=== PATIENT | female | born 1950 | race Asian ===

== ENCOUNTER 2022-09-20 19:35 | Inpatient (IN) | payer OTHER ==
[~2022-09-20] VITALS: Ht 157.5 cm; Wt 49.9 kg
[2022-09-20 19:51] VITALS: BP 135/71; PULSE 71; RESP 20; TEMP 98; O2SAT 89
--- NOTE | 2022-09-20 20:02 | NUR ---
PT. RHETT FERRIS. FAMILY BEDSIDE
--- NOTE | 2022-09-20 20:15 | NUR ---
Patient being evaluated by HILARY at bedside.
[2022-09-20 20:22] LABS: BASOPHILS % (AUTO) 0.1 % (0.0-2.0); HEMATOCRIT 43.4 % (36-48); HEMOGLOBIN 14.6 g/dL (12.0-16.0); LYMPHOCYTES # (AUTO) 1.3 K/uL (2.5-16.5); LYMPHOCYTES % (AUTO) 28.9 % (20.5-51.1); MEAN CORPUSCULAR HEMOGLOBIN 30 pg (27-31); MEAN CORPUSCULAR HGB CONC 34 g/dL (33-37); MEAN CORPUSCULAR VOLUME 88.5 fL (80-94); MONOCYTES # (AUTO) 0.3 K/uL (0.8-1.0); MONOCYTES % (AUTO) 5.6 % (1.7-9.3); NEUTROPHILS % (AUTO) 64.4 % (42.2-75.2); PLATELET COUNT (AUTO) 151 K/uL (140-450); RED CELL DISTRIBUTION WIDTH 13.9 % (11.6-13.7); WHITE BLOOD COUNT (AUTO) 4.7 K/uL (4.8-10.8)
--- NOTE | 2022-09-20 20:23 | NUR ---
ASSUMED CARE OF THE PT. PT SITTING UP IN BED. PT CURRENTLY TALKING TO THE PT'S FAMILY. NO DISTRESS NOTED.
--- NOTE | 2022-09-20 20:26 | NUR ---
PER EMT, ASKED HER TO PUT THE EKG ON HOLD FOR NOW.
--- NOTE | 2022-09-20 20:34 | NUR ---
EKG IN PROGRESS BEING PERFORMED BY EMT.
[2022-09-20 20:38] LABS: ALBUMIN 3.8 g/dL (3.4-5.0); ANION GAP 13.1 (8-16); ASPARTATE AMINOTRANSFERASE 25 U/L (15-37); CARBON DIOXIDE 27.6 mmol/L (21-32); CHLORIDE 103 mmol/L (98-107); CREATININE 0.8 mg/dL (0.6-1.3); GLUCOSE 247 mg/dL (74-106); POTASSIUM 3.7 mmol/L (3.5-5.1); SODIUM SERUM 140 mmol/L (136-145); TOTAL BILIRUBIN 0.4 mg/dL (0.0-1.0); UREA NITROGEN, BLOOD 25 mg/dL (7-18)
--- NOTE | 2022-09-20 21:02 | NUR ---
Pt OOB TO THE RESTROOM ESCORTED BY THE PT'S SON TO OBTAIN UA SAMPLE.
--- NOTE | 2022-09-20 21:20 | NUR ---
WALKED MARY TO LAB.
[2022-09-20 21:22] LABS: APPEARANCE,URINE CLEAR (CLEAR); BILIRUBIN,URINE NEGATIVE (NEGATIVE); BLOOD, URINE NEGATIVE (NEGATIVE); COLOR,URINE YELLOW (YELLOW); LEUKOCYTE ESTERASE ,URINE NEGATIVE (NEGATIVE); NITRITE, URINE NEGATIVE (NEGATIVE); UGLUCOSE 3+ (NEGATIVE)
--- NOTE | 2022-09-20 21:25 | NUR ---
X-Ray at bedside.
--- NOTE | 2022-09-20 21:37 | NUR ---
Ultrasound at bedside.
[2022-09-20] MEDS ORDERED: NACL 0.9% 1,000 ML IV ONE (22:35)
[2022-09-21] MEDS ORDERED: ACYC400T14 PO (00:26)
[2022-09-21] MEDS ORDERED: EMPA25TA PO (00:26)
[2022-09-21] MEDS ORDERED: INSU100V6 SQ (00:26)
[2022-09-21] MEDS ORDERED: [UNRECOGNIZED DRUG - CODE] PO (00:27)
[2022-09-21] MEDS ORDERED: TRI48 PO (00:27)
[2022-09-21] MEDS ORDERED: GABA100C PO (00:27)
[2022-09-21] MEDS ORDERED: ROSU10TA1 PO (00:27)
[2022-09-21] MEDS ORDERED: DOCU-299 PO (00:27)
--- NOTE | 2022-09-21 00:45 | NUR ---
PT'S SON MADE AWARE THAT HIS MOTHER WOULD BE ADMITTED INTO THE HOSPITAL. PT MADE AWARE. PT RESTING CALMLY WITHOUT DISTRESS.
--- NOTE | 2022-09-21 01:06 | NUR ---
PT ESCORTED TO THE RESTROOM BY EMT.
[2022-09-21] MEDS ORDERED: NACL 0.9% 1,000 ML IV ONE (02:15)
--- NOTE | 2022-09-21 03:06 | NUR ---
TELEPHONE REPORT PROVIDED TO KYLER YOON. PT AWAKE. A/O X 4, RA. PT TO GO TO ROOM 124-B. PT ESCORTED BY CRISTOBAL TO THE FLOOR. PT LEFT BY CRISTOBAL IN STABLE CONDTION. NO DISTRESS NOTED.
[2022-09-21 04:00] VITALS: BP 142/62; PULSE 84; RESP 18; TEMP 98; O2SAT 95
--- NOTE | 2022-09-21 07:27 | NUR ---
Patient's Plan of Care was discussed and reviewed with TRUST MANAGER ASSISTANT: MUKESH CHÁVEZ
--- NOTE | 2022-09-21 07:40 | NUR ---
RECEIVED ENDORSEMENT FROM FLOATMAN NURSE FOR CONTINUITY OF CARE. PT IS STABLE, CALL LIGHT WITHIN REACH.
[2022-09-21 08:00] VITALS: BP 138/70; PULSE 81; PULSE 99; RESP 18; TEMP 97.8; O2SAT 95; O2SAT 96
[2022-09-21] MEDS ORDERED: MAG SULF 2000 MG/WATER PREMIX 50 ML IV PRN (08:00)
[2022-09-21 16:00] VITALS: BP 138/70; PULSE 81; RESP 18; TEMP 97.8; O2SAT 95
[2022-09-21] MEDS ORDERED: MORPHINE SULFATE 2 MG/ML SYR IVP PRN (18:05)
[2022-09-21] MEDS ORDERED: LORazepam 2 MG/ML VIAL IVP PRN (18:05)
[2022-09-21] MEDS ORDERED: ONDANSETRON 4 MG/2 ML VIAL IVP PRN (18:05)
[2022-09-21] MEDS ORDERED: DOCUSATE SODIUM 100 MG GELCAP PO PRN (18:05)
[2022-09-21] MEDS ORDERED: ACETAMINOPHEN 325 MG TAB PO PRN (18:05)
[2022-09-21] MEDS ORDERED: ZOLPIDEM 10 MG TAB PO PRN (18:05)
[2022-09-21] MEDS ORDERED: POTASSIUM CHLORIDE 10 MEQ TABER PO PRN (18:05)
[2022-09-21] MEDS: NACL 0.9% 1,000 ML IV SCH (18:31)
--- NOTE | 2022-09-21 19:16 | NUR ---
RECEIVED REPORT FROM DAY SHIFT NURSE FOR CONTINUITY OF CARE. PATIENT IS AWAKE, A&O X3, AROUSABLE TO NAME. AMBULATORY BUT PATIENT STATES SEVERE WEAKNESS IN LEFT SIDE EXTREMITIES AND REQUIRES ASSISTANCE WHEN AMBULATING. CURRENTLY ON ROOM AIR WITH NO SIGS OF ACUTE DISTRESS NOTED. OVERALL SKIN IS INTACT. IV SITE LOCATED AT RIGHT FOREARM 22 GAUGE, FLUSHED AND INFUSING FLUIDS WELL. CALL LIGHT WITHIN REACH, ENCOURAGED TO USE WHEN ASSISTANCE TO THE RESTROOM IS NEEDED.
[2022-09-21 20:00] VITALS: BP 122/76; PULSE 98; RESP 18; TEMP 97.1; O2SAT 97
[2022-09-21] MEDS: BLOOD GLUCOSE MONITORING 1 DEV DEV FS SCH (20:56)
--- NOTE | 2022-09-21 21:00 | NUR ---
Patient's Plan of Care was discussed and reviewed with METAL GRINDER: KYLER MAYORGA
--- NOTE | 2022-09-21 21:00 | NUR ---
PATIENT BLOOD SUGAR LEVEL OF 133, NO COVERAGE NEEDED. ALL OTHER DUE MEDICATIONS ADMINISTERED WITH NO COMPLICATIONS.
--- NOTE | 2022-09-21 23:45 | NUR ---
ASSISTED PATIENT TO RESTROOM. GAIT REMAINS VERY UNSTEADY. ASKED THE PATIENT IF WE COULD PUT HER IN A DIAPER BUT PATIENT REFUSED. ENCOURAGED PATIENT TO CONTINUE USING CALL LIGHT FOR ASSISTANCE.
[2022-09-22 04:00] VITALS: BP 114/76; PULSE 94; RESP 18; TEMP 98.1; O2SAT 96
[2022-09-22] MEDS: NACL 0.9% 1,000 ML IV SCH ×3 (04:25→18:06)
[2022-09-22 05:16] LABS: BASOPHILS % (AUTO) 0.1 % (0.0-2.0); EOSINOPHILS % (AUTO) 0.6 % (0.0-4.0); HEMATOCRIT 40.5 % (36-48); HEMOGLOBIN 13.6 g/dL (12.0-16.0); LYMPHOCYTES # (AUTO) 1.1 K/uL (2.5-16.5); LYMPHOCYTES % (AUTO) 24.9 % (20.5-51.1); MEAN CORPUSCULAR HEMOGLOBIN 30 pg (27-31); MEAN CORPUSCULAR HGB CONC 34 g/dL (33-37); MEAN CORPUSCULAR VOLUME 88.2 fL (80-94); MONOCYTES # (AUTO) 0.3 K/uL (0.8-1.0); MONOCYTES % (AUTO) 6.3 % (1.7-9.3); NEUTROPHILS # (AUTO) 3.1 K/uL (1.8-7.7); NEUTROPHILS % (AUTO) 68.1 % (42.2-75.2); PLATELET COUNT (AUTO) 121 K/uL (140-450); RED BLOOD CELL COUNT(AUTO) 4.59 MIL/uL (4.20-5.40); RED CELL DISTRIBUTION WIDTH 13.9 % (11.6-13.7); WHITE BLOOD COUNT (AUTO) 4.6 K/uL (4.8-10.8)
[2022-09-22 05:32] LABS: CARBON DIOXIDE 22.5 mmol/L (21-32); CHLORIDE 103 mmol/L (98-107); CREATININE 0.6 mg/dL (0.6-1.3); GLUCOSE 138 mg/dL (74-106); POTASSIUM 3.5 mmol/L (3.5-5.1); SODIUM SERUM 139 mmol/L (136-145); UREA NITROGEN, BLOOD 14 mg/dL (7-18)
--- NOTE | 2022-09-22 06:11 | NUR ---
SKIN AROUND IV SITE REDDENED AND CAUSING THE PATIENT PAIN. IV WAS REMOVED AND A NEW ONE WAS STARTED AT THE LEFT FOREARM 22 GAUGE, FLUSHED AND PATENT.
[2022-09-22] MEDS: BLOOD GLUCOSE MONITORING 1 DEV DEV FS SCH ×4 (06:31→21:07)
--- NOTE | 2022-09-22 07:30 | NUR ---
BEDSIDE REPORT RECEIVED FROM KYLER FOR CONTINUITY OF CARE. ALERT AND ORIENTED X 4. UKRAINIAN SPEAKING. IVF INFUSING WELL. NO C/O PAIN OR DISCOMFORT. CALL LIGHT KEPT WITHIN REACH. WILL CONTINUE TO MONITOR.
--- NOTE | 2022-09-22 07:49 | NUR ---
ENDORSED TO DAY SHIFT NURSE FOR CONTINUITY OF CARE. PT IS STABLE AT THIS TIME.
[2022-09-22 08:00] VITALS: BP 145/80; PULSE 102; PULSE 94; RESP 18; RESP 19; TEMP 97.3; O2SAT 96; O2SAT 97
[2022-09-22] MEDS: GABAPENTIN 100 MG CAP PO SCH ×3 (08:27→17:24)
[2022-09-22] MEDS: DOCUSATE SODIUM 100 MG GELCAP PO SCH (08:27)
[2022-09-22] MEDS: ATORVASTATIN 20 MG TAB PO SCH (08:27)
--- NOTE | 2022-09-22 08:27 | NUR ---
SCHEDULED PO MEDICATIONS AND HEPARIN SQ WAS GIVEN. TOLERATED WELL. SENIOR DATA MINING ANALYST ID #: [id number].
[2022-09-22] MEDS ORDERED: ATORVASTATIN 20 MG TAB PO SCH (09:00)
--- NOTE | 2022-09-22 09:29 | NUR ---
PATIENT HAS BEEN SCREENED AND CATEGORIZED MODERATE NUTRITION RISK. PATIENT WILL BE SEEN WITHIN 3-5 DAYS OF ADMISSION. 09/21/22-09/26/[address]
--- NOTE | 2022-09-22 12:05 | NUR ---
BS CHECKED 180. INSULIN WAS GIVEN PER SLIDING SCALE. GABAPENTIN PO WAS GIVEN. TOLERATED WELL.
[2022-09-22] MEDS: INSULIN LISPRO SLIDING SCALE 100 UNITS/ML VIAL SUBQ PRN ×2 (12:09→21:11)
--- NOTE | 2022-09-22 17:25 | NUR ---
BS CHECKED 139. NO COVERAGE NEEDED.
--- NOTE | 2022-09-22 17:32 | NUR ---
GABAPENTIN PO WAS GIVEN. TOLERATED WELL.
--- NOTE | 2022-09-22 17:38 | NUR ---
XRAY RESULT FOR LT HIP AND XRAY TO LT KNEE, REPORTED TO DR. FRANKS AWAITING FOR RESULT.
--- NOTE | 2022-09-22 19:15 | NUR ---
BEDSIDE REPORT GIVEN TO RADIATION CONTROL TECHNICIAN FOR CONTINUITY OF CARE. REMAINS STABLE.
[2022-09-22 20:00] VITALS: BP 133/77; PULSE 97; RESP 18; TEMP 97.2; O2SAT 95
--- NOTE | 2022-09-22 20:00 | NUR ---
RECEIVED BEDSIDE REPORT FROM NURSE KIA. PATIENT WELL RESTED IN BED ALERT VERBALLY RESPONSIVE. NO SOB ON ROOM AIR. IVF NS INFUSING TO LEFT AC. DENIES PAIN. CALL LIGHT IN REACH. SAFETY PRECAUTIONS ARE IN PLACE.
--- NOTE | 2022-09-22 21:12 | NUR ---
DUE MEDICATIONS GIVEN ORDERED.
--- NOTE | 2022-09-22 23:45 | NUR ---
EXHIBITION ORGANISER WAS USED FOR PATIENT TO EXPLAIN THE USE OF PUREWICK. PATIENT WITH BILATERAL LOWER EXTREMITY WEAKNESS. FOR PATIENT SAFETY IT WAS RECOMMENDED THE USE OF PUREWICK. EXPLAINED TO PATIENT USING EXHIBITION ORGANISER WITH UNDERSTANDING AND IS WILLING TO USE THE PUREWICK.
[2022-09-23 04:00] VITALS: BP 125/72; PULSE 92; RESP 17; TEMP 97.4; O2SAT 96
[2022-09-23] MEDS: NACL 0.9% 1,000 ML IV SCH (04:43)
[2022-09-23 05:21] LABS: BASOPHILS % (AUTO) 0.2 % (0.0-2.0); EOSINOPHILS % (AUTO) 0.8 % (0.0-4.0); HEMATOCRIT 39.6 % (36-48); HEMOGLOBIN 13.3 g/dL (12.0-16.0); LYMPHOCYTES # (AUTO) 1.6 K/uL (2.5-16.5); LYMPHOCYTES % (AUTO) 33.8 % (20.5-51.1); MEAN CORPUSCULAR HEMOGLOBIN 30 pg (27-31); MEAN CORPUSCULAR HGB CONC 34 g/dL (33-37); MEAN CORPUSCULAR VOLUME 87.8 fL (80-94); MONOCYTES # (AUTO) 0.4 K/uL (0.8-1.0); MONOCYTES % (AUTO) 7.6 % (1.7-9.3); NEUTROPHILS # (AUTO) 2.7 K/uL (1.8-7.7); NEUTROPHILS % (AUTO) 57.6 % (42.2-75.2); PLATELET COUNT (AUTO) 128 K/uL (140-450); RED BLOOD CELL COUNT(AUTO) 4.51 MIL/uL (4.20-5.40); RED CELL DISTRIBUTION WIDTH 13.8 % (11.6-13.7); WHITE BLOOD COUNT (AUTO) 4.7 K/uL (4.8-10.8)
[2022-09-23 06:11] LABS: ANION GAP 15.9 (8-16); CARBON DIOXIDE 22.4 mmol/L (21-32); CHLORIDE 107 mmol/L (98-107); CREATININE 0.6 mg/dL (0.6-1.3); GLUCOSE 158 mg/dL (74-106); POTASSIUM 3.3 mmol/L (3.5-5.1); SODIUM SERUM 142 mmol/L (136-145); UREA NITROGEN, BLOOD 11 mg/dL (7-18)
[2022-09-23] MEDS: BLOOD GLUCOSE MONITORING 1 DEV DEV FS SCH ×4 (06:33→20:55)
--- NOTE | 2022-09-23 06:40 | NUR ---
CHECKED BLOOD SUGAR WAS 150. NO INSULIN COVERAGE NEEDED.
--- NOTE | 2022-09-23 07:10 | NUR ---
BEDSIDE REPORT RECEIVED FROM CHEO FOR CONTINUITY OF CARE. ALERT AND ORIENTED X 4. ARABIC SPEAKING. IVF INFUSING WELL. NOT IN ANY DISTRESS NOTED. CALL LIGHT KEPT WITHIN REACH. WILL CONTINUE TO MONITOR.
--- NOTE | 2022-09-23 07:16 | NUR ---
ENDORSED PATIENT TO AM NURSE FOR CONTINUITY OF CARE. PATIENT STABLE.
[2022-09-23 08:00] VITALS: BP 140/75; PULSE 95; RESP 19; TEMP 98.8; O2SAT 98
[2022-09-23] MEDS: DOCUSATE SODIUM 100 MG GELCAP PO SCH (08:52)
--- NOTE | 2022-09-23 08:52 | NUR ---
SCHEDULED PO MEDICATIONS AND HEPARIN SQ WAS GIVEN. TOLERATED WELL.
[2022-09-23] MEDS: GABAPENTIN 100 MG CAP PO SCH ×3 (08:53→17:14)
[2022-09-23] MEDS: ATORVASTATIN 20 MG TAB PO SCH (08:53)
--- NOTE | 2022-09-23 08:53 | NUR ---
POTASSIUM 3.3. PRN K DUR WAS GIVEN. TOLERATED WELL.
--- NOTE | 2022-09-23 11:32 | NUR ---
RECEIVED ORDER TO PATIENT TO GO TO SNF FOR PT. WENT TO BEDSIDE TO TALK TO PATIENT ABOUT WHAT AREA SHE WOULD LIKE TO STAY.USED YARD LABOR SUPERVISOR CARON #[id number] WHO INFORMED ME THAT SHE WOULD LIKE TO STAY IN [place]. PATIENT ALSO CALLED SON TONY WHO SPOKE AFGHAN AND HE INFORMED ME THAT HE WANTS TO KEEP MOM IN THE AREA AND TRY TO FIND A PLACE WITH A [employer] PROGRAM. FAXED ALL INFORMATION OVER TO [facility]. HE ALSO REQUESTED TO ADD SISTER REVA TO EMERGENCY CONTACT LIST.WILL FOLLOW UP WITH UPDATES. Addendum: 09/23/22 at 1533 by Kezia Solano RN DC [age] YRS OLD FEMALE PATIENT WAS ADMITTED FROM HOME WITH A DX OF DIZZINESS. PATIENT HAS A HX OF DM, HLD, AND BRAIN CANCER. CXR NORMAL. VENOUS DOPPLER NO DVT. LEFT HIP AND LEFT KNEE X-RAY NO FRACTURE OR DISLOCATION. ADMINISTERED IVF AND CONTINUED HOME MEDS. PER PT EVALUATION AND RECOMMENDATION TO GO TO SNF. FAMILY PREFERRED A SNF WHO HAS A [employer]UG[employer] PROGRAM. FAXED TO [facility]. CM TO FOLLOW Addendum: 09/24/22 at 0910 by CARINA WHALEN CM RECEIVED CALL FROM SHENA AT [facility] [id number] [facility] [id number]. [facility]. TRANSPORTATION AUTH# [id number] GIVEN BY FARIDEH AT [facility]. TRANSPORTATION ARRANGED WITH [employer] FOR A [address] [employer] SU[employer] SPECIALIST TIME. CALLED DAUGHTER REVA AND SON TONY TO INFORMED THEM OF THE ABOVE INFORMATION. NURSE NESHA AWARE OF THER ABOVE INFO WELL
--- NOTE | 2022-09-23 11:58 | NUR ---
PHYSICAL THERAPY CO-SIGN The Physical Therapy Progress Notes documented by Senior Wind Energy Consultant have been reviewed. Reviewed/Co-Signed by: Becky Ghosh PT Documentation Done by:YUNEIR ARORA FIRER TUNNEL KILN Addendum: 09/23/22 at 1158 by Becky Ghosh PT Amended: Links added.
[2022-09-23] MEDS: INSULIN LISPRO SLIDING SCALE 100 UNITS/ML VIAL SUBQ PRN ×2 (12:27→21:04)
--- NOTE | 2022-09-23 17:14 | NUR ---
BS CHECKED 144. NO COVERAGE NEEDED.
--- NOTE | 2022-09-23 19:30 | NUR ---
BEDSIDE REPORT GIVEN TO CONVENTIONAL UNDERWRITER FOR CONTINUITY OF CARE. REMAINS STABLE.
--- NOTE | 2022-09-23 19:41 | NUR ---
RECEIVED REPORT FROM DAY SHIFT NURSE FOR CONTINUITY OF CARE. PATIENT IS AWAKE, A&O X4, AROUSABLE TO NAME. AMBULATORY BUT PATIENT STATES SEVERE WEAKNESS IN LEFT SIDE EXTREMITIES AND REQUIRES ASSISTANCE WHEN AMBULATING. CURRENTLY ON ROOM AIR WITH NO SIGNS OF ACUTE DISTRESS NOTED. OVERALL SKIN IS INTACT. IV SITE LOCATED AT LEFT FOREARM 22 GAUGE, FLUSHED FOR PATENCY. CALL LIGHT WITHIN REACH, ENCOURAGED TO USE WHEN ASSISTANCE TO THE RESTROOM IS NEEDED. PT HAS AGREED TO USE BED WETZEL.
[2022-09-23 20:00] VITALS: BP 115/77; PULSE 87; RESP 18; TEMP 97.2; O2SAT 96
--- NOTE | 2022-09-23 21:30 | NUR ---
PATIENT BLOOD GLUCOSE LEVEL OF 178, 2 UNITS OF HUMALOG ADMINISTERED. WHEN ATTEMPTING TO ADMINISTER HEPARIN INJECTION SUBQ, PATIENT STATED SHE DID NOT WANT THE SHOT. EDUCATED THE PATIENT ON THE RISKS OF REFUSING MEDICATION BUT PATIENT STILL STATED SHE DID NOT WANT THE MEDICATION.
[2022-09-23 23:03] VITALS: PULSE 95; RESP 19; O2SAT 98
--- NOTE | 2022-09-23 23:12 | NUR ---
Patient's Plan of Care was discussed and reviewed with ANESTHESIOLOGISTS' ASSISTANT: MUKESH CHÁVEZ
--- NOTE | 2022-09-24 03:32 | NUR ---
PATIENT SLEEPING COMFORTABLY. NO SIGNS OF DISTRESS NOTED. WILL CONTINUE MONITORING THE PATIENT.
[2022-09-24 04:00] VITALS: BP 109/66; PULSE 91; RESP 18; TEMP 97.2; O2SAT 95
[2022-09-24 05:27] LABS: BASOPHILS % (AUTO) 0.2 % (0.0-2.0); HEMATOCRIT 39.5 % (36-48); HEMOGLOBIN 13.5 g/dL (12.0-16.0); LYMPHOCYTES # (AUTO) 1.6 K/uL (2.5-16.5); LYMPHOCYTES % (AUTO) 34.5 % (20.5-51.1); MEAN CORPUSCULAR HEMOGLOBIN 30 pg (27-31); MEAN CORPUSCULAR HGB CONC 34 g/dL (33-37); MEAN CORPUSCULAR VOLUME 87.3 fL (80-94); MONOCYTES # (AUTO) 0.4 K/uL (0.8-1.0); MONOCYTES % (AUTO) 7.9 % (1.7-9.3); NEUTROPHILS # (AUTO) 2.6 K/uL (1.8-7.7); NEUTROPHILS % (AUTO) 56.4 % (42.2-75.2); PLATELET COUNT (AUTO) 132 K/uL (140-450); RED BLOOD CELL COUNT(AUTO) 4.53 MIL/uL (4.20-5.40); WHITE BLOOD COUNT (AUTO) 4.6 K/uL (4.8-10.8)
[2022-09-24] MEDS: BLOOD GLUCOSE MONITORING 1 DEV DEV FS SCH ×2 (06:36→11:30)
[2022-09-24] MEDS: INSULIN LISPRO SLIDING SCALE 100 UNITS/ML VIAL SUBQ PRN ×2 (06:38→14:09)
--- NOTE | 2022-09-24 07:01 | NUR ---
PATIENT BLOOD SUGAR LEVEL OF 175. 2 UNITS OF HUMALOG INSULIN WAS ADMINISTERED. PT TOLERATED WELL. WILL ENDORSE TO DAY SHIFT NURSE FOR CONTINUITY OF CARE.
--- NOTE | 2022-09-24 07:25 | NUR ---
RECEIVED PATIENT FROM PM NURSE FOR CONTINUATION OF CARE
[2022-09-24 07:31] LABS: ANION GAP 16.8 (8-16); CARBON DIOXIDE 21.8 mmol/L (21-32); CHLORIDE 105 mmol/L (98-107); CREATININE 0.6 mg/dL (0.6-1.3); GLUCOSE 161 mg/dL (74-106); POTASSIUM 3.6 mmol/L (3.5-5.1); SODIUM SERUM 140 mmol/L (136-145); UREA NITROGEN, BLOOD 12 mg/dL (7-18)
[2022-09-24 08:00] VITALS: PULSE 86; RESP 17; O2SAT 95
[2022-09-24] MEDS: DOCUSATE SODIUM 100 MG GELCAP PO SCH (09:52)
[2022-09-24] MEDS: GABAPENTIN 100 MG CAP PO SCH ×2 (09:53→14:03)
[2022-09-24] MEDS: ATORVASTATIN 20 MG TAB PO SCH (09:53)
[2022-09-24 12:00] VITALS: BP 109/66; PULSE 86; RESP 17; TEMP 97.2; O2SAT 95
[2022-09-24 13:20] VITALS: BP 109/66; PULSE 86; RESP 17; TEMP 97.2
--- NOTE | 2022-09-24 13:56 | NUR ---
PHYSICAL THERAPY CO-SIGN The Physical Therapy Progress Notes documented by Casing In Line Setter have been reviewed. Reviewed/Co-Signed by: Becky Ghosh PT Documentation Done by:YUNIER ARORA CADDY MASTER Addendum: 09/24/22 at 1356 by Becky Ghosh PT Amended: Links added.
== END 2022-09-24 14:23 | DRG 639 ==
LOC: MED 19:35 → EDBD 19:35 → MTU 09-21 02:16
PROVIDERS: ADMIT Family Medicine; ATTEND Family Medicine
DX: E11.65 Type 2 diabetes mellitus with hyperglycemia (principal); E78.5 Hyperlipidemia, unspecified; Z85.841 Personal history of malignant neoplasm of brain; Z79.4 Long term (current) use of insulin; Z79.899 Other long term (current) drug therapy
CPT/HCPCS: 36415; 71045; 73502; 73562; 80048; 80053; 81003; 82948; 83036; 83735; 84484; 85025; 87081; 93005; 93971; 97110; 97112; 97116; 97530; 99285; J1644; J1815; Q0092

== ENCOUNTER 2022-11-29 14:22 | Emergency (ER) | payer OTHER, MEDICAID ==
[~2022-11-29] VITALS: Ht 157.5 cm; Wt 54.4 kg
[~2022-11-29 14:22] MED LIST: ACYC400T14 PO; DOCU-299 PO; EMPA25TA PO; GABA100C PO; INSU100V6 SQ; ROSU10TA1 PO; TRI48 PO; [UNRECOGNIZED DRUG - CODE] PO
[2022-11-29 14:37] VITALS: BP 119/81; PULSE 104; RESP 16; TEMP 97.4; O2SAT 98
[2022-11-29 15:13] LABS: BASOPHILS % (AUTO) 0.1 % (0.0-2.0); EOSINOPHILS % (AUTO) 0.7 % (0.0-4.0); HEMATOCRIT 39.2 % (36-48); HEMOGLOBIN 13.2 g/dL (12.0-16.0); LYMPHOCYTES # (AUTO) 1.3 K/uL (2.5-16.5); MEAN CORPUSCULAR HEMOGLOBIN 30 pg (27-31); MEAN CORPUSCULAR HGB CONC 34 g/dL (33-37); MEAN CORPUSCULAR VOLUME 88.7 fL (80-94); MONOCYTES # (AUTO) 0.4 K/uL (0.8-1.0); MONOCYTES % (AUTO) 8.9 % (1.7-9.3); NEUTROPHILS % (AUTO) 62.3 % (42.2-75.2); PLATELET COUNT (AUTO) 133 K/uL (140-450); RED BLOOD CELL COUNT(AUTO) 4.42 MIL/uL (4.20-5.40); RED CELL DISTRIBUTION WIDTH 13.3 % (11.6-13.7); WHITE BLOOD COUNT (AUTO) 4.8 K/uL (4.8-10.8)
[2022-11-29 15:29] LABS: ALANINE AMINOTRANSFERASE 50 U/L (12-78); ALBUMIN 3.3 g/dL (3.4-5.0); ALKALINE PHOSPHATASE 102 U/L (50-136); ANION GAP 14.5 (8-16); ASPARTATE AMINOTRANSFERASE 35 U/L (15-37); CALCIUM 8.8 mg/dL (8.5-10.1); CARBON DIOXIDE 23.2 mmol/L (21-32); CHLORIDE 101 mmol/L (98-107); CREATININE 0.8 mg/dL (0.6-1.3); GLUCOSE 299 mg/dL (74-106); POTASSIUM 3.7 mmol/L (3.5-5.1); SODIUM SERUM 135 mmol/L (136-145); TOTAL BILIRUBIN 0.5 mg/dL (0.0-1.0); TOTAL PROTEIN, SERUM 7.6 g/dL (6.4-8.2); UREA NITROGEN, BLOOD 20 mg/dL (7-18)
[2022-11-30 07:45] VITALS: O2SAT 98
[2022-11-30] MEDS ORDERED: ACET-10509 PO (09:50)
[2022-11-30 09:55] VITALS: BP 125/82; PULSE 82; RESP 16; TEMP 98; O2SAT 99
== END 2022-11-30 09:55 | disposition home or self-care (01) ==
LOC: MED 14:22
DX: S00.03XA Contusion of scalp, initial encounter (principal); R76.8 Other specified abnormal immunological findings in serum; Z79.899 Other long term (current) drug therapy; W18.30XA Fall on same level, unspecified, initial encounter; Y93.89 Activity, other specified; Y92.89 Other specified places as the place of occurrence of the external cause; Y99.8 Other external cause status
CPT/HCPCS: 36415; 70450; 71045; 71275; 72125; 80053; 83880; 84484; 85025; 85379; 93005; 93970; 99285; Q0092; Q9967

== ENCOUNTER 2023-11-08 14:58 | Emergency (ER) | payer OTHER, MEDICAID ==
[~2023-11-08] VITALS: Ht 154.9 cm; Wt 59.0 kg
[~2023-11-08 14:58] MED LIST changes: +ACET-2619 PO; -ACYC400T14 PO; +DAPA5TAB PO; +DOCU-2 PO; -DOCU-299 PO; -EMPA25TA PO; +FENO48TA11 PO; +INSU100S22 SUBQ; -INSU100V6 SQ; +METF-346 PO; +MIRT-120 PO; +OXYB5TAB44 PO; +POTA10TA70 PO; +SITA100T8 PO; +TIM.5OS OP; -TRI48 PO
[2023-11-08 15:00] VITALS: BP 126/70; PULSE 90; RESP 18; TEMP 98.7; O2SAT 97
[2023-11-08 16:26] LABS: BASOPHILS % (AUTO) 0.1 % (0.0-2.0); EOSINOPHILS % (AUTO) 0.5 % (0.0-4.0); HEMATOCRIT 41.7 % (36-48); HEMOGLOBIN 13.7 g/dL (12.0-16.0); LYMPHOCYTES # (AUTO) 2.3 K/uL (2.5-16.5); MEAN CORPUSCULAR HEMOGLOBIN 29 pg (27-31); MEAN CORPUSCULAR HGB CONC 33 g/dL (33-37); MEAN CORPUSCULAR VOLUME 87.9 fL (80-94); MONOCYTES # (AUTO) 0.4 K/uL (0.8-1.0); MONOCYTES % (AUTO) 6.1 % (1.7-9.3); NEUTROPHILS # (AUTO) 4.4 K/uL (1.8-7.7); NEUTROPHILS % (AUTO) 61.3 % (42.2-75.2); PLATELET COUNT (AUTO) 166 K/uL (140-450); RED BLOOD CELL COUNT(AUTO) 4.74 MIL/uL (4.20-5.40); RED CELL DISTRIBUTION WIDTH 14.2 % (11.6-13.7); WHITE BLOOD COUNT (AUTO) 7.1 K/uL (4.8-10.8)
[2023-11-08 16:46] LABS: ANION GAP 14.3 (8-16); CALCIUM 9.5 mg/dL (8.5-10.1); CARBON DIOXIDE 26.4 mmol/L (21-32); CHLORIDE 101 mmol/L (98-107); CREATININE 0.7 mg/dL (0.6-1.3); GLUCOSE 147 mg/dL (74-106); POTASSIUM 3.7 mmol/L (3.5-5.1); SODIUM SERUM 138 mmol/L (136-145); UREA NITROGEN, BLOOD 15 mg/dL (7-18)
[2023-11-08 16:58] LABS: APPEARANCE,URINE HAZY (CLEAR); BILIRUBIN,URINE NEGATIVE (NEGATIVE); BLOOD, URINE 1+ (NEGATIVE); COLOR,URINE YELLOW (YELLOW); LEUKOCYTE ESTERASE ,URINE 3+ (NEGATIVE); NITRITE, URINE POSITIVE (NEGATIVE); PROTEIN,URINE 1+ (NEGATIVE); UGLUCOSE NEGATIVE (NEGATIVE); UROBILINOGEN,URINE 0.2 EU/dL (0.2 - 1)
[2023-11-08 17:01] LABS: THYROID STIMULATING HORMONE 1.65 uIU/mL (0.34-3.74)
[2023-11-08 17:12] VITALS: BP 130/67; PULSE 84; RESP 19; TEMP 98.7
[2023-11-08 17:17] LABS: BACTERIA,URINE 3+ /HPF (None Seen); SQUAMOUS EPITHELIAL CELL,UR 4-10 (MOD) /LPF (0-3 (FEW)); WBC,URINE 20-60 /HPF (0-5)
[2023-11-08 17:27] VITALS: O2SAT 98
[2023-11-08] MEDS ORDERED: CEPH-588 PO (17:29)
[2023-11-08] MEDS ORDERED: LORazepam 2 MG/ML VIAL ONE (18:08)
[2023-11-08] MEDS: LORazepam 2 MG/ML VIAL IM ONE (18:22)
== END 2023-11-08 18:37 | disposition home or self-care (01) ==
LOC: MED 14:58
DX: N39.0 Urinary tract infection, site not specified (principal); R42 Dizziness and giddiness; R53.1 Weakness; R51.9 Headache, unspecified; I10 Essential (primary) hypertension; E11.9 Type 2 diabetes mellitus without complications; F03.90 Unspecified dementia, unspecified severity, without behavioral disturbance, psychotic disturbance, mood disturbance, and anxiety; Z85.841 Personal history of malignant neoplasm of brain; E78.5 Hyperlipidemia, unspecified; Z79.84 Long term (current) use of oral hypoglycemic drugs; Z79.1 Long term (current) use of non-steroidal anti-inflammatories (NSAID); Z79.899 Other long term (current) drug therapy; Z88.1 Allergy status to other antibiotic agents
CPT/HCPCS: 36415; 70450; 80048; 81001; 84443; 84484; 85025; 87086; 87186; 93005; 99284; J2060

== ENCOUNTER 2023-12-12 19:27 | Emergency (ER) | payer OTHER ==
[~2023-12-12] VITALS: Ht 157.5 cm; Wt 54.4 kg
[~2023-12-12 19:27] MED LIST changes: +CEPH-588 PO
[2023-12-12 19:33] VITALS: BP 136/86; PULSE 97; RESP 14; TEMP 97.3; O2SAT 95
[2023-12-12 19:45] VITALS: O2SAT 99
[2023-12-12 20:44] LABS: BASOPHILS % (AUTO) 0.1 % (0.0-2.0); EOSINOPHILS # (AUTO) 0.1 K/uL (0-0.4); EOSINOPHILS % (AUTO) 0.7 % (0.0-4.0); HEMATOCRIT 39.9 % (36-48); HEMOGLOBIN 13.3 g/dL (12.0-16.0); LYMPHOCYTES # (AUTO) 2.6 K/uL (2.5-16.5); LYMPHOCYTES % (AUTO) 35.6 % (20.5-51.1); MEAN CORPUSCULAR HEMOGLOBIN 29 pg (27-31); MEAN CORPUSCULAR HGB CONC 33 g/dL (33-37); MEAN CORPUSCULAR VOLUME 86.9 fL (80-94); MONOCYTES # (AUTO) 0.5 K/uL (0.8-1.0); MONOCYTES % (AUTO) 7.3 % (1.7-9.3); NEUTROPHILS # (AUTO) 4.1 K/uL (1.8-7.7); NEUTROPHILS % (AUTO) 56.3 % (42.2-75.2); PLATELET COUNT (AUTO) 178 K/uL (140-450); RED BLOOD CELL COUNT(AUTO) 4.59 MIL/uL (4.20-5.40); RED CELL DISTRIBUTION WIDTH 14.3 % (11.6-13.7); WHITE BLOOD COUNT (AUTO) 7.2 K/uL (4.8-10.8)
[2023-12-12 21:00] LABS: ALANINE AMINOTRANSFERASE 32 U/L (12-78); ALBUMIN 3.4 g/dL (3.4-5.0); ALKALINE PHOSPHATASE 49 U/L (50-136); ANION GAP 14.1 (8-16); ASPARTATE AMINOTRANSFERASE 19 U/L (15-37); CALCIUM 9.4 mg/dL (8.5-10.1); CARBON DIOXIDE 26.7 mmol/L (21-32); CHLORIDE 102 mmol/L (98-107); CREATININE 0.7 mg/dL (0.6-1.3); GLUCOSE 123 mg/dL (74-106); LIPASE 47 U/L (16-77); POTASSIUM 3.8 mmol/L (3.5-5.1); SODIUM SERUM 139 mmol/L (136-145); TOTAL BILIRUBIN 0.3 mg/dL (0.0-1.0); TOTAL PROTEIN, SERUM 7.6 g/dL (6.4-8.2); UREA NITROGEN, BLOOD 12 mg/dL (7-18)
[2023-12-12 21:50] LABS: BILIRUBIN,URINE NEGATIVE (NEGATIVE); BLOOD, URINE NEGATIVE (NEGATIVE); COLOR,URINE YELLOW (YELLOW); LEUKOCYTE ESTERASE ,URINE TRACE (NEGATIVE); NITRITE, URINE POSITIVE (NEGATIVE); PROTEIN,URINE NEGATIVE (NEGATIVE); UGLUCOSE NEGATIVE (NEGATIVE); UROBILINOGEN,URINE 0.2 EU/dL (0.2 - 1)
[2023-12-12 21:52] LABS: APPEARANCE,URINE SLIGHTLY CLOUDY (CLEAR)
[2023-12-12 21:58] LABS: BACTERIA,URINE 2+ /HPF (None Seen); MUCUS,URINE None Seen /LPF (None Seen); RBC,URINE 0 /HPF (0-5); SQUAMOUS EPITHELIAL CELL,UR 4-10 (MOD) /LPF (0-3 (FEW)); WBC,URINE 0-5 /HPF (0-5)
[2023-12-12] MEDS ORDERED: CEPH-588 PO (22:11)
[2023-12-12] MEDS ORDERED: ACET500T99 PO (22:12)
[2023-12-13 00:50] VITALS: BP 101/75; PULSE 84; RESP 14; TEMP 98.1; O2SAT 99
== END 2023-12-13 00:50 | disposition home or self-care (01) ==
LOC: MED 19:27
DX: N39.0 Urinary tract infection, site not specified (principal); I12.9 Hypertensive chronic kidney disease with stage 1 through stage 4 chronic kidney disease, or unspecified chronic kidney disease; E11.22 Type 2 diabetes mellitus with diabetic chronic kidney disease; N18.9 Chronic kidney disease, unspecified; E78.5 Hyperlipidemia, unspecified; Z79.84 Long term (current) use of oral hypoglycemic drugs; Z79.899 Other long term (current) drug therapy; Z88.1 Allergy status to other antibiotic agents
CPT/HCPCS: 36415; 80053; 81001; 83690; 84484; 85025; 87086; 87186; 93005; 99284

== ENCOUNTER 2024-01-19 23:49 | Inpatient (IN) | payer OTHER ==
[~2024-01-19] VITALS: Ht 162.6 cm; Wt 49.4 kg
[~2024-01-19 23:49] MED LIST changes: +ACET500T99 PO
[2024-01-19 23:51] VITALS: BP 146/89; PULSE 100; RESP 16; TEMP 97.8; O2SAT 96
[2024-01-20] VITALS (7 sets, daily range): BP systolic 97–121; BP diastolic 58–65; PULSE 72–91; RESP 18–19; TEMP 96.3–96.9; O2SAT 95–100
[2024-01-20] MEDS: ONDANSETRON 4 MG/2 ML VIAL IVP ONE (01:08)
[2024-01-20 01:10] LABS: EOSINOPHILS % (AUTO) 0.1 % (0.0-4.0); HEMATOCRIT 40.9 % (36-48); HEMOGLOBIN 13.8 g/dL (12.0-16.0); LYMPHOCYTES # (AUTO) 1.9 K/uL (2.5-16.5); LYMPHOCYTES % (AUTO) 15.8 % (20.5-51.1); MEAN CORPUSCULAR HEMOGLOBIN 29 pg (27-31); MEAN CORPUSCULAR HGB CONC 34 g/dL (33-37); MONOCYTES # (AUTO) 0.8 K/uL (0.8-1.0); MONOCYTES % (AUTO) 6.8 % (1.7-9.3); NEUTROPHILS # (AUTO) 9.2 K/uL (1.8-7.7); NEUTROPHILS % (AUTO) 77.3 % (42.2-75.2); PLATELET COUNT (AUTO) 181 K/uL (140-450); RED BLOOD CELL COUNT(AUTO) 4.71 MIL/uL (4.20-5.40); RED CELL DISTRIBUTION WIDTH 14.1 % (11.6-13.7); WHITE BLOOD COUNT (AUTO) 11.9 K/uL (4.8-10.8)
[2024-01-20 01:27] LABS: INR 1.11 (0.8-1.2); PARTIAL THROMBOPLASTIN TIME 25.7 secs (22-35.6); PROTHROMBIN TIME 11.5 secs (10.8-13.4)
[2024-01-20 01:35] LABS: ALANINE AMINOTRANSFERASE 30 U/L (12-78); ALBUMIN 3.5 g/dL (3.4-5.0); ALKALINE PHOSPHATASE 52 U/L (50-136); ASPARTATE AMINOTRANSFERASE 19 U/L (15-37); BILIRUBIN,DIRECT 0.1 mg/dL (0.0-0.3); LIPASE 24 U/L (16-77); TOTAL BILIRUBIN 0.6 mg/dL (0.0-1.0); TOTAL PROTEIN, SERUM 7.7 g/dL (6.4-8.2)
[2024-01-20 01:48] LABS: ANION GAP 14.2 (8-16); CALCIUM 9.3 mg/dL (8.5-10.1); CHLORIDE 97 mmol/L (98-107); CREATININE 0.7 mg/dL (0.6-1.3); GLUCOSE 169 mg/dL (74-106); POTASSIUM 4.2 mmol/L (3.5-5.1); SODIUM SERUM 134 mmol/L (136-145); UREA NITROGEN, BLOOD 14 mg/dL (7-18)
[2024-01-20] MEDS ORDERED: KETOROLAC 30 MG/ML VIAL IM ONE (03:00)
[2024-01-20] MEDS: KETOROLAC 30 MG/ML VIAL IVP ONE (03:48)
[2024-01-20] MEDS: ACETAMINOPHEN EXTRA STRENGTH 500 MG TAB PO ONE (03:53)
[2024-01-20] MEDS ORDERED: ACETAMINOPHEN 325 MG TAB PO PRN (04:00)
[2024-01-20 04:10] LABS: APPEARANCE,URINE CLEAR (CLEAR); BILIRUBIN,URINE NEGATIVE (NEGATIVE); BLOOD, URINE NEGATIVE (NEGATIVE); COLOR,URINE YELLOW (YELLOW); LEUKOCYTE ESTERASE ,URINE 3+ (NEGATIVE); NITRITE, URINE NEGATIVE (NEGATIVE); PROTEIN,URINE TRACE (NEGATIVE); UGLUCOSE NEGATIVE (NEGATIVE); UROBILINOGEN,URINE 0.2 EU/dL (0.2 - 1)
[2024-01-20 04:12] LABS: BACTERIA,URINE >30 (MANY) /HPF (None Seen); MUCUS,URINE 1+ /LPF (None Seen); RBC,URINE 0-5 /HPF (0-5); SQUAMOUS EPITHELIAL CELL,UR 0-3 (FEW) /LPF (0-3 (FEW)); WBC,URINE >25 (MANY) /HPF (0-5)
[2024-01-20] MEDS ORDERED: ASCO500T95 PO (04:49)
[2024-01-20] MEDS ORDERED: TIM.5OS OP (04:49)
[2024-01-20] MEDS ORDERED: BISA-279 RC (04:49)
[2024-01-20] MEDS ORDERED: TUBE5SOL28 TD (04:49)
[2024-01-20] MEDS ORDERED: DOCU-299 PO (04:49)
[2024-01-20] MEDS ORDERED: MAGN400S60 PO (04:49)
[2024-01-20] MEDS ORDERED: GLIP5TER PO (04:49)
[2024-01-20] MEDS ORDERED: ACET-2619 PO (04:49)
[2024-01-20] MEDS ORDERED: OXYB5TAB44 PO (04:49)
[2024-01-20] MEDS ORDERED: IBUP200C15 PO (04:49)
[2024-01-20] MEDS ORDERED: D50SYR IV (04:49)
[2024-01-20] MEDS ORDERED: FLEPED RC (04:49)
[2024-01-20] MEDS ORDERED: ONDA4TAB12 PO (04:49)
[2024-01-20] MEDS ORDERED: ROSU40TA PO (04:49)
[2024-01-20] MEDS ORDERED: MECL-303 PO (04:49)
[2024-01-20] MEDS ORDERED: TRI48 PO (04:49)
[2024-01-20] MEDS ORDERED: METF-1139 PO (04:49)
[2024-01-20] MEDS ORDERED: GLUC1PDS1 IM (04:49)
[2024-01-20 05:44] LABS: FLU A ANTIGEN POSITIVE (NEGATIVE); FLU B ANTIGEN NEGATIVE (NEGATIVE)
[2024-01-20] MEDS ORDERED: cefTRIAXone 1,000 MG VIAL ONE (06:00)
[2024-01-20] MEDS: ENOXAPARIN 40 MG/0.4 ML SYR SUBQ SCH (10:32)
[2024-01-21] VITALS (7 sets, daily range): BP systolic 92–109; BP diastolic 59–63; PULSE 65–78; RESP 17–20; TEMP 96.5–98; O2SAT 94–99
[2024-01-21] MEDS: cefTRIAXone 1,000 MG VIAL ONE (05:38)
[2024-01-21 06:48] LABS: BASOPHILS % (AUTO) 0.1 % (0.0-2.0); EOSINOPHILS % (AUTO) 0.4 % (0.0-4.0); HEMATOCRIT 36.4 % (36-48); LYMPHOCYTES % (AUTO) 38.2 % (20.5-51.1); MEAN CORPUSCULAR HEMOGLOBIN 29 pg (27-31); MEAN CORPUSCULAR HGB CONC 33 g/dL (33-37); MEAN CORPUSCULAR VOLUME 86.8 fL (80-94); MONOCYTES # (AUTO) 0.3 K/uL (0.8-1.0); MONOCYTES % (AUTO) 6.4 % (1.7-9.3); NEUTROPHILS # (AUTO) 2.9 K/uL (1.8-7.7); NEUTROPHILS % (AUTO) 54.9 % (42.2-75.2); PLATELET COUNT (AUTO) 155 K/uL (140-450); RED BLOOD CELL COUNT(AUTO) 4.19 MIL/uL (4.20-5.40); RED CELL DISTRIBUTION WIDTH 14.3 % (11.6-13.7); WHITE BLOOD COUNT (AUTO) 5.2 K/uL (4.8-10.8)
[2024-01-21 07:24] LABS: ALANINE AMINOTRANSFERASE 23 U/L (12-78); ALBUMIN 2.9 g/dL (3.4-5.0); ALKALINE PHOSPHATASE 45 U/L (50-136); ANION GAP 11.7 (8-16); ASPARTATE AMINOTRANSFERASE 16 U/L (15-37); CALCIUM 8.8 mg/dL (8.5-10.1); CARBON DIOXIDE 27.9 mmol/L (21-32); CHLORIDE 101 mmol/L (98-107); CREATININE 0.7 mg/dL (0.6-1.3); GLUCOSE 157 mg/dL (74-106); MAGNESIUM 1.9 mg/dL (1.8-2.4); PHOSPHORUS 3.5 mg/dL (2.5-4.9); POTASSIUM 3.6 mmol/L (3.5-5.1); SODIUM SERUM 137 mmol/L (136-145); TOTAL BILIRUBIN 0.3 mg/dL (0.0-1.0); TOTAL PROTEIN, SERUM 6.8 g/dL (6.4-8.2); UREA NITROGEN, BLOOD 17 mg/dL (7-18)
[2024-01-21] MEDS: OSELTAMIVIR PHOSPHATE 75 MG CAP PO SCH (08:25)
[2024-01-21] MEDS: ASPIRIN 81 MG TAB.CHEW PO SCH (08:25)
[2024-01-21] MEDS ORDERED: MECLIZINE 25 MG TAB PO PRN (08:50)
[2024-01-21] MEDS ORDERED: DEXTROSE 50% 50 ML SYR IVP PRN (08:55)
[2024-01-21] MEDS ORDERED: OXYBUTYNIN 5 MG TAB PO SCH (09:00)
[2024-01-21] MEDS ORDERED: bisacodyL 10 MG SUPP RC PRN (09:00)
[2024-01-21] MEDS: DOCUSATE SODIUM 100 MG GELCAP PO SCH (09:42)
[2024-01-21] MEDS: GABAPENTIN 100 MG CAP PO SCH (09:42)
[2024-01-21] MEDS: BLOOD GLUCOSE MONITORING 1 DEV DEV FS SCH (11:30)
[2024-01-21] MEDS: OXYBUTYNIN 5 MG TAB PO SCH (13:02)
[2024-01-21] MEDS: INSULIN LISPRO SLIDING SCALE 100 UNITS/ML VIAL SUBQ PRN (17:16)
[2024-01-21] MEDS: MIRTAZAPINE 15 MG TAB PO SCH (20:10)
[2024-01-22] VITALS: BP 100/60; PULSE 70; RESP 17; TEMP 97; O2SAT 98
[2024-01-22 04:00] VITALS: BP 100/60; PULSE 73; RESP 18; TEMP 96.8; O2SAT 98
[2024-01-22 07:20] LABS: BASOPHILS % (AUTO) 0.1 % (0.0-2.0); EOSINOPHILS % (AUTO) 0.7 % (0.0-4.0); HEMATOCRIT 40.6 % (36-48); HEMOGLOBIN 13.4 g/dL (12.0-16.0); LYMPHOCYTES # (AUTO) 1.7 K/uL (2.5-16.5); MEAN CORPUSCULAR HEMOGLOBIN 29 pg (27-31); MEAN CORPUSCULAR HGB CONC 33 g/dL (33-37); MEAN CORPUSCULAR VOLUME 87.8 fL (80-94); MONOCYTES # (AUTO) 0.4 K/uL (0.8-1.0); MONOCYTES % (AUTO) 7.8 % (1.7-9.3); NEUTROPHILS # (AUTO) 2.4 K/uL (1.8-7.7); NEUTROPHILS % (AUTO) 54.4 % (42.2-75.2); PLATELET COUNT (AUTO) 169 K/uL (140-450); RED BLOOD CELL COUNT(AUTO) 4.63 MIL/uL (4.20-5.40); RED CELL DISTRIBUTION WIDTH 14.3 % (11.6-13.7); WHITE BLOOD COUNT (AUTO) 4.5 K/uL (4.8-10.8)
[2024-01-22 08:00] VITALS: BP 122/71; PULSE 71; RESP 18; TEMP 96.9; O2SAT 97; O2SAT 98
[2024-01-22 08:00] LABS: ALANINE AMINOTRANSFERASE 39 U/L (12-78); ALBUMIN 3.3 g/dL (3.4-5.0); ALKALINE PHOSPHATASE 44 U/L (50-136); ANION GAP 10.8 (8-16); ASPARTATE AMINOTRANSFERASE 30 U/L (15-37); CARBON DIOXIDE 30.7 mmol/L (21-32); CHLORIDE 103 mmol/L (98-107); CREATININE 0.7 mg/dL (0.6-1.3); GLUCOSE 204 mg/dL (74-106); POTASSIUM 3.5 mmol/L (3.5-5.1); SODIUM SERUM 141 mmol/L (136-145); TOTAL BILIRUBIN 0.2 mg/dL (0.0-1.0); TOTAL PROTEIN, SERUM 7.6 g/dL (6.4-8.2); UREA NITROGEN, BLOOD 21 mg/dL (7-18)
[2024-01-22 16:00] VITALS: PULSE 74; RESP 18; TEMP 97.4; O2SAT 98
[2024-01-22 16:49] VITALS: O2SAT 96
[2024-01-22] MEDS: HYDROcodone/APAP 5/325 MG 1 TAB TAB PO PRN (18:26)
[2024-01-22 20:00] VITALS: PULSE 76; PULSE 78; RESP 17; RESP 18; TEMP 97.8; O2SAT 95; O2SAT 96
[2024-01-23] VITALS: BP 119/73; PULSE 79; RESP 16; TEMP 98.2; O2SAT 97
[2024-01-23 07:22] LABS: BASOPHILS % (AUTO) 0.3 % (0.0-2.0); EOSINOPHILS % (AUTO) 0.9 % (0.0-4.0); HEMATOCRIT 38.8 % (36-48); HEMOGLOBIN 12.8 g/dL (12.0-16.0); LYMPHOCYTES # (AUTO) 1.7 K/uL (2.5-16.5); LYMPHOCYTES % (AUTO) 42.7 % (20.5-51.1); MEAN CORPUSCULAR HEMOGLOBIN 29 pg (27-31); MEAN CORPUSCULAR HGB CONC 33 g/dL (33-37); MEAN CORPUSCULAR VOLUME 87.3 fL (80-94); MONOCYTES # (AUTO) 0.3 K/uL (0.8-1.0); MONOCYTES % (AUTO) 7.3 % (1.7-9.3); NEUTROPHILS # (AUTO) 1.9 K/uL (1.8-7.7); NEUTROPHILS % (AUTO) 48.8 % (42.2-75.2); PLATELET COUNT (AUTO) 162 K/uL (140-450); RED BLOOD CELL COUNT(AUTO) 4.45 MIL/uL (4.20-5.40); RED CELL DISTRIBUTION WIDTH 14.2 % (11.6-13.7)
[2024-01-23 08:00] VITALS: BP 126/78; PULSE 85; RESP 18; TEMP 96.9; O2SAT 96
[2024-01-23 08:00] LABS: ALANINE AMINOTRANSFERASE 57 U/L (12-78); ALBUMIN 3.2 g/dL (3.4-5.0); ALKALINE PHOSPHATASE 47 U/L (50-136); ANION GAP 11.6 (8-16); ASPARTATE AMINOTRANSFERASE 46 U/L (15-37); CALCIUM 8.7 mg/dL (8.5-10.1); CARBON DIOXIDE 27.8 mmol/L (21-32); CHLORIDE 105 mmol/L (98-107); CREATININE 0.6 mg/dL (0.6-1.3); GLUCOSE 152 mg/dL (74-106); POTASSIUM 3.4 mmol/L (3.5-5.1); SODIUM SERUM 141 mmol/L (136-145); TOTAL BILIRUBIN 0.2 mg/dL (0.0-1.0); UREA NITROGEN, BLOOD 14 mg/dL (7-18)
[2024-01-23] MEDS: MORPHINE SULFATE 2 MG/ML SYR IVP PRN (10:01)
[2024-01-23] MEDS ORDERED: TAM75 PO (11:38)
[2024-01-23 14:44] VITALS: BP 127/72; PULSE 75; RESP 18; TEMP 97.6
[2024-01-23 16:00] VITALS: BP_SYST 110; BP_SYST 121; BP_DIAS 75; BP_DIAS 78; PULSE 78; PULSE 88; RESP 18; RESP 19; TEMP 96.8; TEMP 97; O2SAT 97; O2SAT 98
[2024-01-23 17:15] VITALS: O2SAT 98
== END 2024-01-23 18:00 | DRG 565 ==
LOC: MED 23:49 → MTU 01-20 04:01
PROVIDERS: ADMIT Student in an Organized Health Care Education/Training Program; ATTEND Student in an Organized Health Care Education/Training Program
DX: M85.812 Other specified disorders of bone density and structure, left shoulder (principal); N30.00 Acute cystitis without hematuria; J10.1 Influenza due to other identified influenza virus with other respiratory manifestations; Z20.822 Contact with and (suspected) exposure to COVID-19; E11.22 Type 2 diabetes mellitus with diabetic chronic kidney disease; I12.9 Hypertensive chronic kidney disease with stage 1 through stage 4 chronic kidney disease, or unspecified chronic kidney disease; E11.65 Type 2 diabetes mellitus with hyperglycemia; E78.5 Hyperlipidemia, unspecified; N18.9 Chronic kidney disease, unspecified; Z88.1 Allergy status to other antibiotic agents; Z79.899 Other long term (current) drug therapy; Z79.4 Long term (current) use of insulin; Z79.84 Long term (current) use of oral hypoglycemic drugs; M85.811 Other specified disorders of bone density and structure, right shoulder
CPT/HCPCS: 36415; 71045; 73030; 80048; 80053; 80076; 81001; 82948; 83690; 83735; 83880; 84100; 84484; 85025; 85610; 85730; 87040; 87081; 87086; 87186; 93005; 96365; 96375; 97163-GP; 97530; 99285; J0696; J1650; J1815; J1885; J2270; J2405; J7060; Q0092